=== PATIENT | male | born 1995 | race Caucasian/White ===

== ENCOUNTER 2024-05-24 05:41 | Emergency (ER) | payer OTHER ==
[~2024-05-24] VITALS: Ht 177.8 cm; Wt 163.3 kg
[~2024-05-24 05:41] MED LIST: NAPROXEN250 MG PO; PEPCID20 MG PO; PREDNISONE20 MG PO
[2024-05-24 06:13] VITALS: PULSE 92; RESP 19; TEMP 98.3; O2SAT 100
== END 2024-05-24 08:22 | disposition home or self-care (01) ==
LOC: ER 05:45
DX: R07.89 Other chest pain (principal); E66.01 Morbid (severe) obesity due to excess calories
CPT/HCPCS: 71046; 93005; 99283